=== PATIENT | male | born 1960 | race American Indian/Alaskan Native ===

== ENCOUNTER 2017-09-14 10:27 | Emergency (ER) | payer MEDICARE ==
[2017-09-14 11:20] VITALS: BP 142/84
[2017-09-14] MEDS ORDERED: NORCO 10/325 PO ONE (14:28)
--- NOTE | 2017-09-14 14:31 | Emergency Department Report ---
- General Chief complaint: Skin Rash Stated complaint: RASH/BLISTERS ON HEAD Time Seen by Provider: 09/14/17 14:23 Source: patient Mode of arrival: Wheelchair Limitations: No Limitations - History of Present Illness MD complaint: abscess/boil - Related Data Previous Rx's Medication Instructions Recorded Last Taken Type HYDROcodone/APAP 5-325 [[place] 1 each PO Q6HR PRN #18 tablet 09/14/17 Unknown Rx 5/325] Naphazoline HCl/Pheniramine 1 drop OP Q4H PRN #1 drops 09/14/17 Unknown Rx [Naphcon-A Eye Drops] Prednisone [predniSONE 5 mg (6-Day 5 mg PO .TAPER #1 tab.ds.pk 09/14/17 Unknown Rx Pack, 21 Tabs)] Tobramycin 0.3% [Tobrex] 1 drop OD Q4H #1 bottle 09/14/17 Unknown Rx Allergies Allergy/AdvReac Type Severity Reaction Status Date / Time No Known Allergies Allergy Unverified 09/14/17 11:19 Abscess Boil HPI - HPI Chief Complaint: Skin Rash Stated Complaint: RASH/BLISTERS ON HEAD Time Seen by Provider: 09/14/17 14:23 History: Yes Pain, No Fever, No Purulent Drainage, No Numbness, No Foreign Body , No Previous History, No Insect Bite HPI: 56M past medical history arthritis, hypertension presents with complaint of 3-4 days of right facial shingles rash. Patient denies nausea vomiting fever chills chest pain cough. States he wants his primary care doctor and was given 10 days' worth of acyclovir but has been taking Motrin with minimal relief of pain. Patient primarily complaining of pain. Home Medications: Previous Rx's Medication Instructions Recorded Last Taken Type HYDROcodone/APAP 5-325 [[place] 1 each PO Q6HR PRN #18 tablet 09/14/17 Unknown Rx 5/325] Naphazoline HCl/Pheniramine 1 drop OP Q4H PRN #1 drops 09/14/17 Unknown Rx [Naphcon-A Eye Drops] Prednisone [predniSONE 5 mg (6-Day 5 mg PO .TAPER #1 tab.ds.pk 09/14/17 Unknown Rx Pack, 21 Tabs)] Tobramycin 0.3% [Tobrex] 1 drop OD Q4H #1 bottle 09/14/17 Unknown Rx Allergies/Adverse Reactions: Allergies Allergy/AdvReac Type Severity Reaction Status Date / Time No Known Allergies Allergy Unverified 09/14/17 11:19 ED Review of Systems ROS: Stated complaint: RASH/BLISTERS ON HEAD Other details as noted in HPI Constitutional: denies: chills, fever Eyes: denies: eye pain, eye discharge, vision change ENT: denies: ear pain, throat pain Respiratory: denies: cough, shortness of breath, wheezing Cardiovascular: denies: chest pain, palpitations Endocrine: no symptoms reported Gastrointestinal: denies: abdominal pain, nausea, diarrhea Genitourinary: denies: urgency, dysuria Musculoskeletal: denies: back pain, joint swelling, arthralgia Skin: as per HPI, rash, lesions Neurological: denies: headache, weakness, paresthesias Psychiatric: denies: anxiety, depression Hematological/Lymphatic: denies: easy bleeding, easy bruising ED Past Medical Hx - Past Medical History Hx Hypertension: Yes Additional medical history: arthritic knees - Surgical History Past Surgical History?: No - Social History Smoking Status: Never Smoker Substance Use Type: None - Medications Home Medications: Home Medications Medication Instructions Recorded Confirmed Last Taken Type HYDROcodone/APAP 5-325 [[place] 1 each PO Q6HR PRN #18 tablet 09/14/17 Unknown Rx 5/325] Naphazoline HCl/Pheniramine 1 drop OP Q4H PRN #1 drops 09/14/17 Unknown Rx [Naphcon-A Eye Drops] Prednisone [predniSONE 5 mg (6-Day 5 mg PO .TAPER #1 tab.ds.pk 09/14/17 Unknown Rx Pack, 21 Tabs)] Tobramycin 0.3% [Tobrex] 1 drop OD Q4H #1 bottle 09/14/17 Unknown Rx ED Physical Exam - General Limitations: No Limitations General appearance: alert, in no apparent distress - Head Head exam: Present: atraumatic, normocephalic - Eye Eye exam: Present: normal appearance, PERRL, EOMI Pupils: Present: normal accommodation - ENT ENT exam: Present: mucous membranes moist - Neck Neck exam: Present: normal inspection - Respiratory Respiratory exam: Present: normal lung sounds bilaterally. Absent: respiratory distress - Cardiovascular Cardiovascular Exam: Present: regular rate, normal rhythm. Absent: systolic murmur, diastolic murmur, rubs, gallop - GI/Abdominal GI/Abdominal exam: Present: soft, normal bowel sounds - Rectal Rectal exam: Present: deferred - Extremities Exam Extremities exam: Present: normal inspection - Back Exam Back exam: Present: normal inspection - Neurological Exam Neurological exam: Present: alert, oriented X3 - Psychiatric Psychiatric exam: Present: normal affect, normal mood - Skin Skin exam: Present: warm, dry, intact, normal color. Absent: rash - Expanded Skin Exam Expanded 1 - Shingles rash, no involvement of the eye on clinical exam ED Course Vital Signs 09/14/17 11:17 Temperature 98.8 F Pulse Rate 91 H Respiratory 18 Rate Blood Pressure 142/84 O2 Sat by Pulse 100 Oximetry ED Medical Decision Making - Medical Decision Making A/P: Shingles rash 1-patient is artery taking acyclovir as prescribed by his primary care doctor 2-short course of steroids, I discussed this with Dr. Galindo 3-course of [place] 4-pt denies any blurry vision, and 20/30 bilaterally Critical care attestation.: If time is entered above; I have spent that time in minutes in the direct care of this critically ill patient, excluding procedure time. ED Disposition Clinical Impression: Shingles rash Qualifiers: Herpes zoster complications: without complications Qualified Code(s): B02.9 - Zoster without complications Disposition: - TO HOME OR SELFCARE Is pt being admited?: No Does the pt Need Aspirin: No Condition: Stable Instructions: Herpes Zoster (ED) Prescriptions: HYDROcodone/APAP 5-325 [[place] 5/325] 1 each PO Q6HR PRN #18 tablet PRN Reason: Pain Naphazoline HCl/Pheniramine [Naphcon-A Eye Drops] 1 drop OP Q4H PRN #1 drops PRN Reason: Dry Eye(S) Prednisone [predniSONE 5 mg (6-Day Pack, 21 Tabs)] 5 mg PO .TAPER #1 tab.ds.pk Tobramycin 0.3% [Tobrex] 1 drop OD Q4H #1 bottle Referrals: [facility] [Provider Group] - 3-5 Days Forms: Accompanied Note Time of Disposition: :27
== END 2017-09-14 14:42 | disposition home or self-care (01) ==
LOC: ED 10:27
DX: B02.9 Zoster without complications (principal); I10 Essential (primary) hypertension
CPT/HCPCS: 99282

== ENCOUNTER 2017-10-14 10:41 | Emergency (ER) | payer MEDICARE ==
[2017-10-14 10:52] VITALS: BP 116/78
--- NOTE | 2017-10-14 11:40 | Emergency Department Report ---
ED Headache HPI - General Chief Complaint: Headache Stated Complaint: HEAD PAIN Time Seen by Provider: 10/14/17 11:21 Source: patient, RN notes reviewed Exam Limitations: no limitations - History of Present Illness Initial Comments: This is a 56-year-old male that was recently treated for shingles to right facial area and presenting today with right facial pain at 10 out of 10. He said his primary care physician prescribed steroids and pain medication for him and the rash resolved but now he is having pain around his eyes and right facial area to include his forehead. Denies any headache. Pain is 10 out of 10 burning and tingling. He said he took Motrin without any relief. Denies any fever or chills. Patient also has dispute coordinator who recently did I exam and prescribed patient's Tobrex, Naphcon eyedrops. He denies any change in his vision and patient's wearing glasses given to him by dispute coordinator for photophobia. Denies any redness or mucus from eyes. He reports that his right eye tearing. Timing/Duration: constant, increasing Quality: severe, other Head Injury Location: other (right facial area extending from right cheek bone to forehead) Recent Head Trauma: no recent headache/trauma Modifying Factors: improves with: exposure to light Associated Symptoms: facial pain, vision changes. denies: confusion, fatigue, fever/chills, flushing, loss of consciousness, nausea/vomiting, nasal congestion , nasal drainage, numbness in legs/feet, rash, seizures, sinus infection, stiff neck, weakness Allergies/Adverse Reactions: Allergies No Known Allergies Allergy (Unverified 09/14/17 11:19) Home Medications: Ambulatory Orders Naphazoline HCl/Pheniramine [Naphcon-A Eye Drops] 1 drop OP Q4H PRN #1 drops Tobramycin 0.3% [Tobrex] 1 drop OD Q4H #1 bottle 09/14/17 Gabapentin [Neurontin] 300 mg PO DAILY 10 Days #24 cap 10/14/17 HYDROcodone/APAP 7.5-325 [[place] 7.5/325] 1 each PO Q6HR PRN #12 tablet 10/14/17 ED Review of Systems ROS: Stated complaint: HEAD PAIN Other details as noted in HPI Comment: All other systems reviewed and negative Constitutional: denies: chills, fever Eyes: denies: eye pain, eye discharge, vision change ENT: denies: ear pain, throat pain Respiratory: denies: cough, shortness of breath, wheezing Cardiovascular: denies: chest pain, palpitations Endocrine: no symptoms reported Gastrointestinal: denies: abdominal pain, nausea, diarrhea Genitourinary: denies: urgency, dysuria Musculoskeletal: denies: back pain, joint swelling, arthralgia Skin: denies: rash, lesions Neurological: denies: headache, weakness, paresthesias Psychiatric: denies: anxiety, depression Hematological/Lymphatic: denies: easy bleeding, easy bruising ED Past Medical Hx - Past Medical History Previous Medical History?: Yes Hx Hypertension: Yes Additional medical history: arthritic knees - Surgical History Past Surgical History?: No - Family History Family history: hypertension - Social History Smoking Status: Former Smoker Substance Use Type: Prescribed Other Social History: Patient lives with family - Medications Home Medications: Home Medications Medication Instructions Recorded Confirmed Last Taken Type Naphazoline HCl/Pheniramine 1 drop OP Q4H PRN #1 drops 09/14/17 Unknown Rx [Naphcon-A Eye Drops] Tobramycin 0.3% [Tobrex] 1 drop OD Q4H #1 bottle 09/14/17 Unknown Rx Gabapentin [Neurontin] 300 mg PO DAILY 10 Days #24 cap 10/14/17 Unknown Rx HYDROcodone/APAP 7.5-325 [[place] 1 each PO Q6HR PRN #12 tablet 10/14/17 Unknown Rx 7.5/325] ED Physical Exam - General Limitations: No Limitations General appearance: alert, in no apparent distress - Head Head exam: Present: atraumatic, normocephalic, normal inspection, other (normal exam) - Eye Eye exam: Present: normal appearance, PERRL, EOMI, other (positive photophobia) . Absent: scleral icterus, conjunctival injection, nystagmus, periorbital swelling, periorbital tenderness Pupils: Present: normal accommodation - ENT ENT exam: Present: normal exam, normal orophraynx, mucous membranes moist, TM's normal bilaterally, normal external ear exam, other (right facial tenderness from right forehead to right cheekbone.) - Neck Neck exam: Present: normal inspection, full ROM, other (no C-spine tenderness). Absent: tenderness, lymphadenopathy - Respiratory Respiratory exam: Present: normal lung sounds bilaterally. Absent: respiratory distress, chest wall tenderness, accessory muscle use - Cardiovascular Cardiovascular Exam: Present: regular rate, normal rhythm, normal heart sounds. Absent: systolic murmur, diastolic murmur - GI/Abdominal GI/Abdominal exam: Present: soft, normal bowel sounds. Absent: distended, tenderness, guarding, rebound, rigid, organomegaly, mass, bruit, pulsatile mass , hernia - Extremities Exam Extremities exam: Present: normal inspection, full ROM, normal capillary refill , other (no no clubbing, cyanosis or edema. +2 pulses all extremities and no neurovascular compromise). Absent: tenderness, pedal edema, joint swelling, calf tenderness - Back Exam Back exam: Present: normal inspection, other (ambulates without any difficulties ). Absent: full ROM, tenderness, CVA tenderness (R), CVA tenderness (L), muscle spasm, paraspinal tenderness, vertebral tenderness, rash noted - Neurological Exam Neurological exam: Present: alert, oriented X3, normal gait, reflexes normal. Absent: motor sensory deficit - Expanded Neurological Exam Expanded Neurological exam: Absent: memory loss-remote event, memory loss-recent event, ataxia, receptive aphasia, expressive aphasia, total aphasia, tremor, protecting the airway Patient oriented to: Present: person, place, time - Psychiatric Psychiatric exam: Present: normal affect, normal mood - Skin Skin exam: Present: warm, dry, intact, normal color. Absent: rash ED Course Vital Signs 10/14/17 10/14/17 10/14/17 10:46 12:28 13:05 Temperature 99.2 F Pulse Rate 118 H 88 Respiratory 20 16 Rate Blood Pressure 116/78 O2 Sat by Pulse 96 Oximetry - Reevaluation(s) Reevaluation #1: 10/14/17 13:55 Patient given hydrocodone 5/325 milligrams 2 tablets by mouth and he voiced relief of pain. He was also given Decadron 10 mg IM. ED Medical Decision Making - Medical Decision Making ED course: She reports that he was treated for shingles to the right facial area that involved his forehead to cheekbone without any eye involvement. He said he was treated with steroids and pain medication and he also saw ophthalmology who examined his eyes and he did not have any abnormality but he is having and sensitivity to light. Patient is on tobramycin and Naphcon eyedrops and has appointment to see dispute coordinator this week. He also has follow-up appointment to see his primary care doctor. Patient was treated with hydrocodone 5/325 mg 2 tablets by mouth and Decadron 10 mg IM in the emergency room which relieved his pain down to 2 out of 10. I discussed with him that he will need to follow up with neurology for management of pain after shingles. I discussed diagnosis, treatment plan and follow-up with patient. He voiced understanding and discharged home with family with prescription for [place] and Neurontin titrated. Critical care attestation.: If time is entered above; I have spent that time in minutes in the direct care of this critically ill patient, excluding procedure time. ED Disposition Clinical Impression: Postherpetic neuralgia, Facial pain Disposition: - TO HOME OR SELFCARE Is pt being admited?: No Does the pt Need Aspirin: No Condition: Stable Instructions: Paresthesia (ED), Musculoskeletal Pain (ED) Additional Instructions: PCP appointment with your dispute coordinator on 10/18/2017 Keep appointment with a primary care physician as scheduled Follow-up with neurologist for nerve pain after shingles. Continue to wear glasses provided by dispute coordinator to reduce photophobia symptoms Prescriptions: Gabapentin [Neurontin] 300 mg PO DAILY 10 Days #24 cap HYDROcodone/APAP 7.5-325 [[place] 7.5/325] 1 each PO Q6HR PRN #12 tablet PRN Reason: Pain Referrals: PRIMARY CARE, [Primary Care Provider] - 10/16/17 JOHN NIELSEN MD [Staff Physician] - 2-3 Days follow-up with, ophthalmology [Other] - 10/18/17 Forms: Accompanied Note, Work/School Release Form(ED)
[2017-10-14] MEDS ORDERED: DECADRON IM STA (12:11)
[2017-10-14] MEDS ORDERED: NORCO 5/325 PO ONE (12:12)
== END 2017-10-14 13:20 | disposition home or self-care (01) ==
LOC: ED 10:41
DX: B02.22 Postherpetic trigeminal neuralgia (principal); I10 Essential (primary) hypertension; Z87.891 Personal history of nicotine dependence
CPT/HCPCS: 96372; 99282; J1100